=== PATIENT | female | born 1990 | race Caucasian/White ===

== ENCOUNTER 2016-11-02 10:56 | Emergency (ER) | payer OTHER ==
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
== END 2016-11-02 15:36 | disposition home or self-care (01) ==
LOC: CED 10:56
DX: S09.90XA Unspecified injury of head, initial encounter (principal); S01.511A Laceration without foreign body of lip, initial encounter; Y08.89XA Assault by other specified means, initial encounter; Y92.410 Unspecified street and highway as the place of occurrence of the external cause
CPT/HCPCS: 12011; 70450; 70486; 72125; 84703; 96372; 99284; J1170; J2550

== ENCOUNTER 2016-11-06 14:00 | Emergency (ER) | payer OTHER | END 2016-11-06 14:45 | disposition home or self-care (01) | LOC: CED 14:00 → CFTX 14:00 | DX: S01.511D Laceration without foreign body of lip, subsequent encounter (principal); F17.200 Nicotine dependence, unspecified, uncomplicated | CPT/HCPCS: 99281 ==